=== PATIENT | female | born 1950 | race Hispanic/Latino ===

== ENCOUNTER → 2024-03-08 | Day surgery (SDC) | payer MEDICARE ==
[~2024-03-08] MED LIST: ALDACTONE100 MG PO; BIOTIN1 MG; CALCIUM500 MG; LIDOCAINE HCL 2% LOCAL INJ 5 ML SDV VIAL INJ ONE; LIPITOR20 MG PO; METFORMIN HCL500 MG PO; PREDNISONE20 MG PO; PROPOFOL IV EMULSION 10 MG/ML 20 ML VIAL ONE; SPIRONOLACTONE25 MG PO; VITAMIN C1000 MG PO; [UNRECOGNIZED DRUG - CODE]
[2024-03-08] MEDS: LACTATED RINGER'S 1,000 ML ONE (09:00)
[2024-03-08 10:31] VITALS: TEMP 98.7
[2024-03-08 10:45] VITALS: BP 126/77; PULSE 67; RESP 15; O2SAT 97
== END | disposition home or self-care (01) ==
LOC: OR 08:21
PROVIDERS: ATTEND Internal Medicine Gastroenterology
DX: Z09 Encounter for follow-up examination after completed treatment for conditions other than malignant neoplasm (principal); D12.2 Benign neoplasm of ascending colon; D12.3 Benign neoplasm of transverse colon; D12.5 Benign neoplasm of sigmoid colon; K57.30 Diverticulosis of large intestine without perforation or abscess without bleeding; K64.8 Other hemorrhoids; E78.5 Hyperlipidemia, unspecified; E11.9 Type 2 diabetes mellitus without complications; E66.9 Obesity, unspecified; F41.9 Anxiety disorder, unspecified; F31.9 Bipolar disorder, unspecified; F03.90 Unspecified dementia, unspecified severity, without behavioral disturbance, psychotic disturbance, mood disturbance, and anxiety; F17.200 Nicotine dependence, unspecified, uncomplicated; Z79.84 Long term (current) use of oral hypoglycemic drugs; Z79.899 Other long term (current) drug therapy
CPT/HCPCS: 45378; 88305; J2001

== ENCOUNTER 2024-09-12 14:59 | Emergency (ER) | payer MEDICARE ==
[~2024-09-12] VITALS: Ht 152.4 cm; Wt 64.0 kg
[~2024-09-12 14:59] MED LIST changes: -LIDOCAINE HCL 2% LOCAL INJ 5 ML SDV VIAL INJ ONE; -PROPOFOL IV EMULSION 10 MG/ML 20 ML VIAL ONE
[2024-09-12 15:28] VITALS: PULSE 83; RESP 18; TEMP 98.3; O2SAT 98
== END 2024-09-12 15:44 | disposition home or self-care (01) ==
LOC: ER 15:35
DX: R05.9 Cough, unspecified (principal); B34.9 Viral infection, unspecified; I10 Essential (primary) hypertension; E11.9 Type 2 diabetes mellitus without complications; E78.5 Hyperlipidemia, unspecified
CPT/HCPCS: 99282